=== PATIENT | male | born 1965 | race Caucasian/White ===

== ENCOUNTER 2016-08-02 09:41 | Outpatient (CLI) | payer OTHER ==
[~2016-08-02 09:41] MED LIST: Iopamidol 370 76% 100 ML VIAL ONE
--- NOTE | 2016-08-02 23:24 | CT ---
CT ABDOMEN AND PELVIS WITH CONTRAST 08/02/[address] of the abdomen and pelvis was performed with IV contrast as well as oral. Axial slices wer e acquired, then coronal reconstructions were done. The lung bases are clear. No effusions were seen. The liver, spleen, pancreas, gallbladder and abdom inal aorta all showed no acute findings. There were no adrenal masses of concern. The left adrenal i s a little thicker than the right, and there might be a subcentimeter hypoechoic area in the right a drenal gland, but it is uncertain and not a current concern. There is a large 8 cm cyst in the right kidney. No internal mass or debris was seen within it. There are no septations. There is a peripher al amount of calcification. No hydronephrosis or renal calculi could be detected. The bowel is nondistended. There is no sign of inflammatory change around bowel, free air or free fl uid. The prostate is quite large and somewhat irregular. It measures 5.8 cm in diameter. It is probably w orth further investigation given how its superior part seems a little more irregular than I sometime s see. With regards to the right inguinal canal, there is a 2.6 cm ovoid structure seen in the upper portions of the canal. I do not know if this is a small atrophic high riding right testicle or if i t is a cyst or mass. I would recommend followup with a scrotal ultrasound with attention to this reg ion. It does not appear to be a piece of bowel. The remainder of the pelvis showed no acute change. There were some significant degenerative changes present in the lower lumbar spine, however. IMPRESSION: 1. 8 cm left renal cyst. 2. No acute abdominal or pelvic findings. 3. Slightly irregular but enlarged prostate. Further investigation could be warranted. 4. Small round ovoid structure in the right inguinal canal, rather high. High riding small righ t testicle versus cysts versus mass. Ultrasound recommended as followup. Code T POS: HOME
== END 2016-08-02 09:42 | disposition home or self-care (01) ==
LOC: BURCT 09:41
PROVIDERS: ATTEND Family Medicine
DX: R10.31 Right lower quadrant pain (principal); N28.1 Cyst of kidney, acquired; N40.0 Benign prostatic hyperplasia without lower urinary tract symptoms
CPT/HCPCS: 74177

== ENCOUNTER 2016-08-03 13:54 | Outpatient (CLI) | payer OTHER ==
--- NOTE | 2016-08-03 21:27 | ULT ---
INGUINAL ULTRASOUND: 08/03/16 Ultrasonography of the lower anterior abdominopelvic wall was performed in response to an abnormal f inding on a recent CT scan. Scans of the pelvic and inguinal region fail to demonstrate any obvious mass or cyst. The finding on the CT could not be reliably demonstrated on this scan. One can appreci ate the patient's enlarged prostate that is bulging into the bladder. IMPRESSION: No discrete pathology seen. I believe this is because the contrast with the surrounding soft tissues is simply poor, as there is no question the structure is present on the CT scan. I would recommend referral to a urologist for further physical examination and determination of the next steps. POS: HOME
== END 2016-08-03 13:55 | disposition home or self-care (01) ==
LOC: BURULT 13:54
PROVIDERS: ATTEND Family Medicine
DX: R10.31 Right lower quadrant pain (principal)
CPT/HCPCS: 76999

== ENCOUNTER 2016-08-16 09:07 | Outpatient (CLI) | payer OTHER ==
[2016-08-16 09:31] LABS: Bilirubin Negative (Negative); Blood, Urine Trace (Negative); Clarity Clear (Clear); Glucose, Urine (Dipstick) Negative (Negative); Leukocyte Negative (Negative); Nitrite Negative (Negative); Protein, Urine (Dipstick) > or equal to 300 mg/dL (Neg-Trace); Specific Gravity, Urine 1.025 (1.005-1.030); Urobilinogen 0.2 mg/dL (0.2-1.0); pH, Urine 5.5 (5.0-9.0)
[2016-08-16 09:51] LABS: Anion Gap 17 mmol/L (10-20); BUN (Urea Nitrogen) 16 mg/dL (8.4-25.7); Calc. Creatinine Clearance 0 mL/min (70-130); Calcium 9.3 mg/dL (7.8-10.44); Carbon Dioxide 21 mmol/L (22-29); Chloride 109 mmol/L (98-107); Estimated GFR-MDRD 78; Glucose 112 mg/dL (70-105); Potassium 4.4 mmol/L (3.5-5.1); Sodium 143 mmol/L (136-145)
[2016-08-16 11:41] LABS: Bacteria/HPF Rare-Few HPF (None Seen); RBC/HPF 0-3 HPF (0-3); WBC/HPF 0-3 HPF (0-3)
[2016-08-16 11:42] LABS: Squamous Epithelial 0-3 HPF (0-3)
[2016-08-16 18:26] LABS: LDH 232 U/L (125-220)
== END 2016-08-16 09:08 | disposition home or self-care (01) ==
LOC: BURLAB 09:07
PROVIDERS: ATTEND Urology
DX: N40.1 Benign prostatic hyperplasia with lower urinary tract symptoms (principal); R19.09 Other intra-abdominal and pelvic swelling, mass and lump; R97.20 Elevated prostate specific antigen [PSA]; Z87.438 Personal history of other diseases of male genital organs
CPT/HCPCS: 36415; 80048; 81001; 82105; 83615; 84153; 84702; 87086

== ENCOUNTER 2018-07-17 15:09 | Emergency (ER) | payer OTHER ==
[2018-07-17] MEDS ORDERED: Enoxaparin Sodium 100 MG/ML SYRINGE ONE (15:50)
[2018-07-17 15:54] LABS: #Basophils 0.1 thou/uL (0.0-0.2); #Eosinphils 0.5 thou/uL (0.0-0.7); #Lymphocytes 1.8 thou/uL (1.20-3.40); #Monocytes 0.8 thou/uL (0.11-0.59); #Neutrophils 7.9 thou/uL (1.40-6.50); %Basophils 1.1 % (0.0-1.0); %Eosinophils 4.2 % (0.0-10.0); %Lymphocytes 16.4 % (21.0-51.0); %Monocytes 7.1 % (0.0-10.0); %Neutrophils 71.1 % (42.0-75.0); Hemoglobin 15.2 g/dL (14.0-18.0); Mean Corpuscular HGB CONC 30.4 g/dL (32.0-36.0); Mean Corpuscular Hemoglobin 26.4 pg (27.0-31.0); Mean Corpuscular Volume 86.9 fL (78.0-98.0); Mean Platelet Volume 8.9 fL (7.4-10.4); Platelet Count 256 thou/uL (130-400); RBC Distribution Width 13.5 % (11.5-14.5); Red Blood Cell (RBC) Count 5.75 mill/uL (4.70-6.10); White Blood Cell (WBC) Count 11.1 thou/uL (4.8-10.8)
[2018-07-17 16:01] LABS: ALT (SGPT) 46 U/L (8-55); AST (SGOT) 26 U/L (5-34); Albumin 4.4 g/dL (3.5-5.0); Alkaline Phosphatase 87 U/L (40-150); Anion Gap 15 mmol/L (10-20); BUN (Urea Nitrogen) 23 mg/dL (8.4-25.7); Bilirubin, Total 0.7 mg/dL (0.2-1.2); CK (CPK) 190 U/L (30-200); Calc. Creatinine Clearance 0 mL/min (70-130); Calcium 9.8 mg/dL (7.8-10.44); Carbon Dioxide 23 mmol/L (22-29); Chloride 109 mmol/L (98-107); Estimated GFR-MDRD 66; Globulin 2.8 g/dL (2.4-3.5); Glucose 99 mg/dL (70-105); Protein, Total 7.2 g/dL (6.0-8.3); Sodium 143 mmol/L (136-145)
[2018-07-17] MEDS ORDERED: Diltiazem 125 MG/25 ML ONE (17:08)
--- NOTE | 2018-07-17 17:18 | RAD ---
PORTABLE CHEST: 07/17/18 An AP portable film at 1536 is compared with a 12/28/17 study from [facility]. The heart is mildly enlarged but no more so than before. The upper lobe vessels seem a bit more prom inent today than before. Borderline congestion is suspected. There are no effusions, jorge luis pulmonary edema, or focal pulmonary infiltrate. The trachea is midline. IMPRESSION: Cardiomegaly and probably mild vascular congestion. POS: HOME
== END 2018-07-17 17:26 | disposition short-term general hospital (02) ==
LOC: BURERS 15:09
DX: I48.91 Unspecified atrial fibrillation (principal); E78.5 Hyperlipidemia, unspecified; M10.9 Gout, unspecified; I10 Essential (primary) hypertension; F17.210 Nicotine dependence, cigarettes, uncomplicated; Z79.899 Other long term (current) drug therapy
CPT/HCPCS: 71045; 80053; 82550; 83880; 84484; 85025; 93005; 96365; 96372; 96376; J1650

== ENCOUNTER 2019-01-30 12:10 | Emergency (ER) | payer OTHER ==
[2019-01-30 12:45] LABS: #Basophils 0.1 thou/uL (0.0-0.2); #Eosinphils 0.1 thou/uL (0.0-0.7); #Lymphocytes 2.3 thou/uL (1.20-3.40); #Monocytes 0.8 thou/uL (0.11-0.59); #Neutrophils 9.2 thou/uL (1.40-6.50); %Basophils 0.9 % (0.0-1.0); %Eosinophils 0.9 % (0.0-10.0); %Monocytes 6.6 % (0.0-10.0); %Neutrophils 73.5 % (42.0-75.0); Hemoglobin 16.7 g/dL (14.0-18.0); Mean Corpuscular HGB CONC 30.7 g/dL (32.0-36.0); Mean Corpuscular Hemoglobin 25.8 pg (27.0-31.0); Mean Corpuscular Volume 83.9 fL (78.0-98.0); Mean Platelet Volume 9.6 fL (7.4-10.4); Platelet Count 243 thou/uL (130-400); RBC Distribution Width 13.2 % (11.5-14.5); Red Blood Cell (RBC) Count 6.48 mill/uL (4.70-6.10); White Blood Cell (WBC) Count 12.5 thou/uL (4.8-10.8)
[2019-01-30 12:48] LABS: INR-International Normal Ratio 1.2; PTT 29.1 SEC (22.9-36.1); Prothrombin Time 15.3 SEC (12.0-14.7)
[2019-01-30 13:01] LABS: Digoxin Less than 0.15 ng/mL (0.8-2.0)
[2019-01-30 13:20] LABS: ALT (SGPT) 127 U/L (8-55); AST (SGOT) 62 U/L (5-34); Albumin 3.7 g/dL (3.5-5.0); Alkaline Phosphatase 86 U/L (40-110); Anion Gap 20 mmol/L (10-20); BUN (Urea Nitrogen) 35 mg/dL (8.4-25.7); Calc. Creatinine Clearance 0 mL/min (70-130); Calcium 9.1 mg/dL (7.8-10.44); Carbon Dioxide 19 mmol/L (22-29); Chloride 107 mmol/L (98-107); Estimated GFR-MDRD 39; Globulin 2.9 g/dL (2.4-3.5); Glucose 121 mg/dL (70-105); Potassium 4.7 mmol/L (3.5-5.1); Protein, Total 6.6 g/dL (6.0-8.3); Sodium 141 mmol/L (136-145)
[2019-01-30] MEDS ORDERED: Furosemide 40 MG/4 ML VIAL ONE (13:25)
--- NOTE | 2019-01-30 20:01 | RAD ---
PORTABLE CHEST: 01/30/19 Comparison is made with the 06/27/18 study. The heart is slightly enlarged but no different than before. I am not particularly impressed by the v william today. There is certainly no pulmonary edema. At most, there may be some minor congestion of t he upper lobe vessels. There are no large effusions. Slight haziness in the lung bases is not much di fferent than before. The lungs are otherwise clear. IMPRESSION: Mild cardiomegaly. Equivocal prominence of upper lobe vessels. POS: HOME
== END 2019-01-30 14:10 | disposition short-term general hospital (02) ==
LOC: BURERS 12:10
DX: I13.0 Hypertensive heart and chronic kidney disease with heart failure and stage 1 through stage 4 chronic kidney disease, or unspecified chronic kidney disease (principal); I50.9 Heart failure, unspecified; I48.91 Unspecified atrial fibrillation; N17.9 Acute kidney failure, unspecified; E11.22 Type 2 diabetes mellitus with diabetic chronic kidney disease; E11.40 Type 2 diabetes mellitus with diabetic neuropathy, unspecified; K21.9 Gastro-esophageal reflux disease without esophagitis; N18.2 Chronic kidney disease, stage 2 (mild); N40.0 Benign prostatic hyperplasia without lower urinary tract symptoms; E78.5 Hyperlipidemia, unspecified; F17.220 Nicotine dependence, chewing tobacco, uncomplicated; E78.2 Mixed hyperlipidemia; Z79.899 Other long term (current) drug therapy; Z79.01 Long term (current) use of anticoagulants
CPT/HCPCS: 71045; 80053; 80162; 83880; 84484; 85025; 85610; 85730; 93005; 96374; 96375; J1940

== ENCOUNTER 2020-10-26 08:20 | Outpatient (CLI) | payer OTHER ==
[2020-10-26 09:19] LABS: Digoxin 0.26 ng/mL (0.8-2.0)
== END 2020-10-26 08:21 | disposition home or self-care (01) ==
LOC: BURLAB 08:20
PROVIDERS: ATTEND Internal Medicine Cardiovascular Disease
DX: Z51.81 Encounter for therapeutic drug level monitoring (principal); Z79.899 Other long term (current) drug therapy
CPT/HCPCS: 36415; 80162

== ENCOUNTER 2021-01-28 08:55 | Outpatient (CLI) | payer MEDICARE | END 2021-01-28 08:56 | disposition home or self-care (01) | LOC: BURCT 08:55 | PROVIDERS: ATTEND Family Medicine | DX: R10.31 Right lower quadrant pain (principal); N28.1 Cyst of kidney, acquired; N40.0 Benign prostatic hyperplasia without lower urinary tract symptoms | CPT/HCPCS: 74176 ==